=== PATIENT | female | born 1960 | race African-American/Black ===

== ENCOUNTER 2016-02-28 13:24 | Inpatient (IN) | payer OTHER ==
[~2016-02-28] VITALS: Ht 162.6 cm; Wt 71.7 kg
[~2016-02-28 13:24] MED LIST: BENADRYL25 MG PO; DILAUDID1 MG/ML IV; DOCUSATE SODIU100 MG PO; Dilaudid IV; ENDOCET 5-3251 EACH PO; LOVENOX40 MG/0.4 SC; MAG-AL PLUS SUS30 ML PO; MAGNESIUM400 M1 PO; METOCLOPRAMIDE10 MG PO; MILK OF MAGNESI10 ML PO; ONDANSETRON ODT4 MG PO; ONDANSETRON4 MG/2 ML IV; OXYCODONE-APAP1 EACH PO; THERAGRAN1 TABLET PO; VITAMIN D2000 UNI1 PO
[2016-02-28 15:18] VITALS: BP 119/59
[2016-02-28 16:24] LABS: HEMATOCRIT 32.6 % (36.0-46.0); MCH 27.7 PG (29.0-34.0); MCHC 31.9 G/DL (30.0-36.0); MCV 86.7 FL (83-99); MEAN PLAT.VOLUME 9.9 uM^3 (9.5-12.4); PLATELET COUNT 380 K/uL (156-360); RBC DIS.WIDTH-CV 11.5 % (11.8-14.6); RBC DIS.WIDTH-SD 35.1 % (39-53); RED BLOOD COUNT 3.76 M/uL (3.80-5.20); WHITE BLOOD COUNT 8.1 K/uL (4.1-10.2)
[2016-02-28 16:36] LABS: CHLORIDE 103 mEq/L (99-109); POTASSIUM 4.1 mEq/L (3.7-5.4); SODIUM 137 mEq/L (136-147)
[2016-02-28 16:38] LABS: GLUCOSE 98 mg/dL (70-99)
[2016-02-28 16:39] LABS: ANION GAP 10 MEQ/L (2-14)
[2016-02-28 16:40] LABS: TOTAL BILIRUBIN 0.3 mg/dL (0.0-1.0)
[2016-02-28 16:42] LABS: GFR ESTIMATE (CALCULATED) > 59 mL/min/
[2016-02-28 16:43] LABS: UREA NITROGEN (BUN) 14 mg/dL (9-23)
[2016-02-28 16:49] LABS: ALKALINE PHOSPHATASE 106 IU/L (3-129)
[2016-02-29 00:13] VITALS: BP 103/58
[2016-02-29 04:00] VITALS: BP 99/58
[2016-02-29 10:56] LABS: ADD MIUA? NO; BILIRUBIN NEGATIVE; BLOOD NEGATIVE; COLOR YELLOW ((YELLOW)); GLUCOSE (STRIP) NEGATIVE; KETONES NEGATIVE; LEUKOCYTES NEGATIVE; NITRITE NEGATIVE; PH, URINE 5.5 (5-8); PROTEIN (STRIP) NEGATIVE; SPECIFIC GRAVITY 1.016 (1.000-1.030); UROBILINOGEN 0.2 MG/DL (0.2-1.0)
[2016-02-29 11:06] LABS: UCUL ADDED? NO
[2016-02-29 15:54] VITALS: BP 112/67
[2016-03-01 04:00] VITALS: BP 98/52
[2016-03-01 15:30] VITALS: BP 112/67
[2016-03-02 05:07] VITALS: BP 95/51
[2016-03-02 14:37] VITALS: BP 100/54
[2016-03-03 05:22] VITALS: BP 93/56
[2016-03-03 15:33] VITALS: BP 104/59
[2016-03-04 05:33] VITALS: BP 92/50
[2016-03-04 14:59] VITALS: BP 112/63
[2016-03-05 05:46] VITALS: BP 90/54
[2016-03-05 15:00] VITALS: BP 102/51
[2016-03-05] MEDS ORDERED: [UNRECOGNIZED DRUG - OTHER] (16:41)
[2016-03-06 04:00] VITALS: BP 92/50
[2016-03-06 15:28] VITALS: BP 107/67
[2016-03-07 04:00] VITALS: BP 93/62
[2016-03-07 05:33] LABS: BASOPHIL COUNT 0.1 K/uL (0-0.1); EOSINOPHIL (%) 4.3 % (0-5); EOSINOPHIL COUNT 0.4 K/uL (0-0.3); HEMATOCRIT 30.7 % (36.0-46.0); IMMATURE GRANULOCYTE (%) 0.4 % (0.0-0.7); LYMPHOCYTE COUNT 3.4 K/uL (1.0-2.8); MCH 27.6 PG (29.0-34.0); MCHC 31.6 G/DL (30.0-36.0); MCV 87.5 FL (83-99); MONOCYTE (%) 7.2 % (3-12); MONOCYTE COUNT 0.6 K/uL (0-0.8); NEUTROPHIL (%) 46.1 % (45-76); NEUTROPHIL COUNT 3.8 K/uL (1.8-6.4); RBC DIS.WIDTH-CV 12.1 % (11.8-14.6); RBC DIS.WIDTH-SD 38.5 % (39-53); RED BLOOD COUNT 3.51 M/uL (3.80-5.20); WHITE BLOOD COUNT 8.3 K/uL (4.1-10.2)
[2016-03-07 05:49] LABS: MEAN PLAT.VOLUME 9.8 uM^3 (9.5-12.4); PLATELET COUNT 509 K/uL (156-360)
[2016-03-07 06:07] LABS: ALKALINE PHOSPHATASE 108 IU/L (3-129); ANION GAP 8 MEQ/L (2-14); CHLORIDE 102 MEQ/L (99-109); GFR ESTIMATE (CALCULATED) > 59 mL/min/; GLUCOSE 86 mg/dL (70-99); POTASSIUM 3.8 MEQ/L (3.7-5.4); SAMPLE HEMOLYSIS CHECK 0; SAMPLE ICTERIC CHECK 0; SAMPLE LIPEMIA CHECK 0; SODIUM 138 MEQ/L (136-147); TOTAL BILIRUBIN 0.3 MG/DL (0.0-1.0); UREA NITROGEN (BUN) 13 mg/dL (9-23)
[2016-03-07 15:55] VITALS: BP 107/55
[2016-03-08 05:56] VITALS: BP 109/58
[2016-03-08 15:22] VITALS: BP 100/59
[2016-03-08] MEDS ORDERED: LOVENOX40 MG/0.4 SC (16:21)
[2016-03-09 05:13] VITALS: BP 92/55
== END 2016-03-09 14:36 | disposition home health service (06) | DRG 945 ==
LOC: 3WEST 13:24
PROVIDERS: Psychiatry & Neurology Neurology
PROC: F07M0ZZ Range of Motion and Joint Mobility Treatment of Musculoskeletal System - Whole Body (ICD-10-PCS; principal; 2016-02-28)
DX: R53.1 Weakness (principal); I95.9 Hypotension, unspecified; D62 Acute posthemorrhagic anemia; S72.002D Fracture of unspecified part of neck of left femur, subsequent encounter for closed fracture with routine healing; S62.512D Displaced fracture of proximal phalanx of left thumb, subsequent encounter for fracture with routine healing; G89.18 Other acute postprocedural pain; M21.371 Foot drop, right foot; E86.0 Dehydration
CPT/HCPCS: 80053; 81003; 85025; 85027; 97110 GO; 97530 GP; J1650